=== PATIENT | female | born 1995 | race Caucasian/White ===

== ENCOUNTER 2023-11-27 12:08 | Emergency (ER) | payer OTHER, SELFPAY ==
[2023-11-27 12:41] VITALS: BP 111/75; PULSE 97; RESP 18; O2SAT 100; BMI 18.7
[2023-11-27] MEDS: LACTATED RINGERS 1000 ML 1,000 ML IV ×2 (13:20→14:45)
[2023-11-27 13:29] LABS: Basophils Absolute Auto 0.02 K/uL (0.00-0.30); Basophils Percent Auto 0.4 % (0.0-3.0); Eosinophils Absolute Auto 0.02 K/uL (0.00-0.50); Eosinophils Percent Auto 0.4 % (0.0-7.0); Hematocrit 40.3 % (33.0-51.0); Hemoglobin* 13.6 gm/dL (12.0-16.0); Immature Granulocytes Abs Auto 0.01 K/uL (0.00-0.30); Immature Granulocytes Pct Auto 0.2 %; Lymphocytes Absolute Auto 1.61 K/uL (0.90-2.90); Lymphocytes Percent Auto 28.5 % (20-44); Mean Corpuscular HGB Conc 34 gm/dL (32-36); Mean Corpuscular Hemoglobin 30 pg (26-34); Mean Corpuscular Volume 90 fL (80-100); Monocytes Percent Auto 5.5 % (0.0-11.0); Neutrophils Absolute Auto 3.68 K/uL (1.7-7.0); Platelet Count* 225 K/uL (140-440); RDW Coefficient of Variation % 12.1 % (11.5-15.5); Red Blood Count 4.48 m/uL (4.00-5.20); White Blood Count* 5.65 K/uL (4.50-11.00)
--- NOTE | 2023-11-27 13:30 | ED.NAVMDI ---
HPI - Nausea/Vomiting/Diarrhea General Chief complaint: Nausea/Vomiting Stated complaint: dehydration, sent by Time Seen by Provider: 11/27/23 12:48 Source: patient Mode of arrival: ambulatory Limitations: no limitations History of Present Illness HPI Narrative: Patient is a 27-year-old female presenting to the emergency department for nausea and vomiting. She states the symptoms have been going on for the past month and a half but she is feeling even more dehydrated today some went to urgent care. At that time she is given Zofran which states did help her symptoms somewhat but then was told to come to the emergency department for IV fluids for her dehydration. She states she has been intermittently having the symptoms for several years now and has signed to get a GI referral and finally was able to get 1 from urgent care. She has not had any prescriptions previously for her nausea. Does states she has some left upper quadrant abdominal pain but this flu most part only noticeable when she vomits and she had the same abdominal pain every previous time these episodes occur. Has been evaluated in previous ERs with imaging done did not show any abnormalities. Denies fevers, chills, dizziness. Feels slightly lightheaded but thinks is from her dehydration. Denies chest pain, shortness of breath, weakness, numbness, diarrhea, constipation. No other concerns noted Related Data Home Medications ?Medication ?Instructions ?Recorded ?Confirmed gabapentin 100 mg capsule 100 mg PO DAILY 11/27/23 11/27/23 mecobalamin (vitamin B12) .ROUTE 11/27/23 Allergies Allergy/AdvReac Type Severity Reaction Status Date / Time No Known Drug Allergies Allergy Verified 11/27/23 12:46 Review of Systems Status of ROS: Reports: 10 or more systems reviewed and unremarkable except as noted in History and below Exam Narrative: Exam Narrative: Const: Well-nourished, Well-developed, in mild distress Eyes: PERRL, no conjunctival injection, and symmetrical lids HENT: Atraumatic external nose and ears. Moist mucous membranes. Neck: Symmetric, trachea midline, No thyromegaly. CVS: RRR, No murmurs or gallops. Peripheral pulses 2+ and equal in all extremities RESP: Unlabored respiratory effort. Clear to auscultation bilaterally. GI: Mild left upper quadrant tenderness, Nondistended, No rebound or guarding. MSK:Extremities w/o deformity, Normal Active ROM Skin: Warm, Dry. No rashes or lesions. Neuro: Normal Muscle tone, No focal neurological deficits. Psych: Awake, Alert, & Oriented x3. Appropriate mood and affect. Const: Vital Signs, click to edit/add: Vital Signs - 24 hr 11/27/23 12:41 Pulse Rate [Pulse Oximeter] 97 Respiratory Rate 18 Blood Pressure [Le ft Upper Arm] 111/75 Pulse Oximetry 100 Oxygen Delivery Me thod Room Air Course Vital Signs Vital signs: Initial Vital Signs Pulse Rate 97 11/27/23 12:41 Respiratory Rate 18 11/27/23 12:41 Blood Pressure 111/75 11/27/23 12:41 Blood Pressure Mean 87 11/27/23 12:41 Blood Pressure Position Sitting 11/27/23 12:41 Pulse Oximetry 100 11/27/23 12:41 Oxygen Delivery Method Room Air 11/27/23 12:41 Vital Signs Pulse Rate 97 11/27/23 12:41 Respiratory Rate 18 11/27/23 12:41 Blood Pressure 111/75 11/27/23 12:41 Pulse Oximetry 100 11/27/23 12:41 Oxygen Delivery Method Room Air 11/27/23 12:41 Pulse Rate 97 11/27/23 12:41 Respiratory Rate 18 11/27/23 12:41 Blood Pressure 111/75 11/27/23 12:41 Pulse Oximetry 100 11/27/23 12:41 Oxygen Delivery Method Room Air 11/27/23 12:41 Medications Administered Medications: Generic Name Dose Route Start Last Admin Trade Name Freq PRN Reason Stop Dose Admin Lactated Ringer's 1,000 mls @ 1,000 mls/hr 11/27/23 14:29 11/27/23 14:45 Lactated Ringers 1000 Ml IV 11/27/23 15:28 1,000 mls/hr .Q1H ONE Administration Discontinued Medications Generic Name Dose Route Start Last Admin Trade Name Freq PRN Reason Stop Dose Admin Lactated Ringer's 1,000 mls @ 1,000 mls/hr 11/27/23 13:00 11/27/23 14:27 Lactated Ringers 1000 Ml IV 11/27/23 13:59 Infused .Q1H ONE Infusion MDM - Nausea/Vomiting/Diarrhea MDM Narrative Medical decision making narrative: Patient is a 27-year-old female presenting for concerns of dehydration. Will order L of lactated Ringer's. She is still having some nausea and offer her Reglan but she states that medication makes her feel very jittery and she would prefer to stick to the Zofran at this time. Differential at this time includes pancreatitis, gastritis, peptic ulcers. Concerning a patient less likely to be any template gallbladder disease appendicitis. No previous surgical history and SBO is unlikely. She has also had the symptoms the exact the same previously did a full workup done in the ED at that time so do not believe repeat imaging is necessary. Cancer causing intermittent symptoms like this seems very unlikely. Order CMP, lipase, CBC, COVID/flu, magnesium, urinalysis. Lab work returned showing no concerning abnormalities. She was feeling better after the 1 L fluid and a 2 L was given. Urinalysis could possibly showed a UTI put was a dirty sample and she is not having any urinary symptoms at this time so I do not believe it is a UTI. Patient will be discharged she is agreeable to this plan. Lab Data Labs: Lab Results 11/27/23 11/27/23 11/27/23 Range/Units 13:20 14:05 14:09 WBC 5.65 (4.50-11.00) K/uL RBC 4.48 (4.00-5.20) m/uL Hgb 13.6 (12.0-16.0) gm/dL Hct 40.3 (33.0-51.0) % MCV 90 (80-100) fL MCH 30 (26-34) pg MCHC 34 (32-36) gm/dL RDW Coeff of Karli 12.1 (11.5-15.5) % Plt Count 225 (140-440) K/uL Neut % (Auto) 65.0 (42.0-72.0) % Lymph % (Auto) 28.5 (20-44) % [place] % (Auto) 5.5 (0.0-11.0) % Eos % (Auto) 0.4 (0.0-7.0) % Baso % (Auto) 0.4 (0.0-3.0) % Neut # (Auto) 3.68 (1.7-7.0) K/uL Lymph # (Auto) 1.61 (0.90-2.90) K/uL Garvin # (Auto) 0.30 (0.00-0.90) K/UL Eos # (Auto) 0.02 (0.00-0.50) K/uL Baso # (Auto) 0.02 (0.00-0.30) K/uL Abs Immat Gran (auto) 0.01 (0.00-0.30) K/uL Imm/Tot Granulo (auto) 0.2 % Sodium 137 (135-149) mmol/L Potassium 3.8 (3.6-5.1) mmol/L Chloride 105 (96-114) mmol/L Carbon Dioxide 24 (20-32) mmol/L Anion Gap 8 (7-15) mEq/L BUN 14 (5-24) mg/dL Creatinine 0.7 (0.5-1.5) mg/dL Estimated Creat Clear 112.38 Estimated GFR 121 ml/min Glucose 76 (60-115) mg/dL Calcium 8.8 (8.4-10.6) mg/dL Magnesium 2.4 (1.5-2.6) mg/dL Total Bilirubin 0.9 (0.1-1.5) mg/dL AST 27 (12-35) U/L ALT 15 (4-35) U/L Alkaline Phosphatase 48 (40-150) U/L Total Protein 7.5 (6.0-8.3) g/dL Albumin 5.0 (3.3-5.0) g/dL Lipase 58 (23-300) U/L Urine Color Dark yellow (Yellow) Urine Appearance Clear (Clear) Urine pH 8.5 (5.0-8.5) Ur Specific [place] 1.020 (1.000-1.030) Urine Protein 2+ A (Negative) Urine Glucose (UA) Negative (Negative) Urine Ketones 3+ A (Negative) Urine Blood 2+ A (Negative) Urine Nitrite Negative (Negative) Urine Bilirubin 1+ A (Negative) Urine Urobilinogen 0.2 (0.2-1.0) Ur Leukocyte Esterase Trace A (Negative) Urine RBC 0-2 (0-2) Urine WBC 5-10 A (0-5) Ur Squamous Epith Cells Moderate A (None-Few) Urine Bacteria Moderate A (None) Urine HCG, Qual Negative (Negative) SARS-CoV-2 (PCR) Negative SARS-CoV-2 (Negative) Influenza Type A (PCR) Negative PCR FLU A (Negative) Influenza Type B (PCR) Negative PCR FLU B (Negative) Discharge Plan Discharge Clinical Impression: Dehydration Patient Disposition: Home, Self-Care Condition: Improved Instructions: Dehydration (ED), Acute Nausea and Vomiting (ED) Additional Instructions: Make sure to follow-up with your GI appointment. Take the Zofran as this is start again the for symptoms of nausea. Return for new worsening symptoms. Prescriptions: No Action gabapentin 100 mg capsule 100 mg PO DAILY mecobalamin (vitamin B12) .ROUTE Follow Up/Referrals: Provider,Not a Local [Primary Care Provider] - Stand Alone Forms: [facility] Info Instructions
[2023-11-27 13:34] LABS: Slide Review Reflex No
[2023-11-27 13:43] LABS: Chloride* 105 mmol/L (96-114)
[2023-11-27 13:44] LABS: Potassium* 3.8 mmol/L (3.6-5.1); Sodium* 137 mmol/L (135-149)
[2023-11-27 13:46] LABS: Alkaline Phosphatase* 48 U/L (40-150); Anion Gap 8 mEq/L (7-15); Aspartate Amino Transferase* 27 U/L (12-35); Bilirubin Total* 0.9 mg/dL (0.1-1.5); Carbon Dioxide* 24 mmol/L (20-32); Creatinine* 0.7 mg/dL (0.5-1.5); Est. Creatinine Clearance* 112.38; Estimated Glomerular Filt Rate 121 ml/min; Total Protein* 7.5 g/dL (6.0-8.3)
[2023-11-27 13:47] LABS: Alanine Aminotransferase* 15 U/L (4-35); Blood Urea Nitrogen* 14 mg/dL (5-24); Calcium* 8.8 mg/dL (8.4-10.6); Glucose* 76 mg/dL (60-115); Lipase* 58 U/L (23-300); Magnesium* 2.4 mg/dL (1.5-2.6)
[2023-11-27 14:05] LABS: PCR FLU A Negative PCR FLU A (Negative); PCR FLU B Negative PCR FLU B (Negative); SARS PCR* Negative SARS-CoV-2 (Negative)
[2023-11-27 14:22] LABS: Appearance Urine Clear (Clear); Bilirubin Urine 1+ (Negative); Blood Urine 2+ (Negative); Color Urine Dark yellow (Yellow); Glucose Urine Negative (Negative); Ketones Urine 3+ (Negative); Leukocyte Esterase Urine Trace (Negative); Nitrite Urine Negative (Negative); Protein Urine 2+ (Negative); Urobilinogen Urine 0.2 (0.2-1.0); pH Urine 8.5 (5.0-8.5)
[2023-11-27 14:43] LABS: Bacteria Urine Moderate; RBC Urine 0-2 (0-2); Squamous Epithelial Cell Urine Moderate (None-Few)
[2023-11-27 15:00] LABS: Ur HCG Qualitative* Negative (Negative)
== END 2023-11-27 15:36 | disposition home or self-care (01) ==
PROVIDERS: Emergency Provider Student in an Organized Health Care Education/Training Program
DX: E86.0 Dehydration (principal)
CPT/HCPCS: 36415; 80053; 81001; 81025; 83690; 83735; 85025; 87086; 87631; 99283; J7120